=== PATIENT | female | born 1995 | race American Indian/Alaskan Native ===

== ENCOUNTER 2018-12-30 08:41 | Inpatient (IN) | payer MEDICAID ==
[2018-12-30 10:09] LABS: Basophils % (Auto) 0.3 % (0.0-1.8); Eosinophils % (Auto) 0.3 % (0.0-4.3); Hematocrit 32.2 % (30.3-42.9); Hemoglobin 10.2 gm/dl (10.1-14.3); Lymphocytes # (Auto) 1.3 K/mm3 (1.2-5.4); Lymphocytes % (Auto) 14.5 % (13.4-35.0); Mean Corpuscular HGB Conc 32 % (30-34); Mean Corpuscular Volume 76 fl (79-97); Monocytes # (Auto) 0.6 K/mm3 (0.0-0.8); Monocytes % (Auto) 7.2 % (0.0-7.3); Platelet Count 220 K/mm3 (140-440); Red Blood Count 4.26 M/mm3 (3.65-5.03); Red Cell Distribution Width 15.8 % (13.2-15.2)
[2018-12-30] MEDS ORDERED: STADOL IV PRN (12:03)
[2018-12-30] MEDS ORDERED: XYLOCAINE 2% INFILTRATI ONE (12:03)
[2018-12-30] MEDS ORDERED: MINERAL OIL PO PRN (12:03)
[2018-12-30] MEDS ORDERED: ZOFRAN IV PRN ×2 (12:03→18:49)
[2018-12-30] MEDS ORDERED: BRETHINE SUB-Q PRN (12:03)
[2018-12-30] MEDS ORDERED: PITOCin/NS 30 UNIT/500ML 30 UNITS/500 ML BAG IV SCH ×2 (13:00)
[2018-12-30] MEDS ORDERED: PITOCin/NS 20 UNIT/1000ML DRIP 20 UNITS/1,000 ML BAG IV SCH (13:00)
[2018-12-30] MEDS: LACTATED RINGERS 1,000 ML IV SCH ×2 (13:22→16:11)
[2018-12-30 14:14] LABS: Hemoglobin 9.1 gm/dl (10.1-14.3); Mean Corpuscular HGB Conc 32 % (30-34); Mean Corpuscular Volume 76 fl (79-97); Platelet Count 220 K/mm3 (140-440); Red Blood Count 3.82 M/mm3 (3.65-5.03); Red Cell Distribution Width 16.1 % (13.2-15.2)
--- NOTE | 2018-12-30 16:55 | History and Physical Report ---
History of Present Illness Date of admission: 12/30/18 10:51 Chief complaint: "my water broke" History of present illness: 24yo 39 39 3/7 weeks presents complaining of rupture membranes at 0630. She was nitrazine positive and grossly ruptured upon admission. She reports good movement and no vaginal bleeding. She has had care at [facility] beginning at 16 weeks gestation. Her has been complicated by morbid obesity (BMI 41 281lbs) and polyhydramnios 30cm (11/2018). She has been comanaged with [facility]. Past History - Obstetrical History : 3 Number of Living Children: 2 Medications and Allergies Allergies Allergy/AdvReac Type Severity Reaction Status Date / Time No Known Allergies Allergy Unverified 01/13/15 18:37 Home Medications Medication Instructions Recorded Confirmed Last Taken Type Tablet 1 tab PO DAILY 01/13/15 01/16/15 01/15/15 History Active Meds: Active Medications Butorphanol Tartrate (Stadol) 2 mg IV Q2H PRN PRN Reason: Pain , Severe (7-10) Ephedrine Sulfate (Ephedrine Sulfate) 10 mg IV Q2M PRN PRN Reason: Hypotension Lactated Ringer's (Lactated Ringers) 1,000 mls @ 125 mls/hr IV DIRECT MAGED Last Admin: 12/30/18 16:11 Dose: 125 mls/hr Documented by: Oxytocin/Sodium Chloride (Pitocin/Ns 20 Unit/1000ml Drip) 20 units in 1,000 mls @ 125 mls/hr IV DIRECT MAGED Oxytocin/Sodium Chloride (Pitocin/Ns 30 Unit/500ml) 30 units in 500 mls @ 1 mls/hr IV TITR MAGED; Protocol Oxytocin/Sodium Chloride (Pitocin/Ns 30 Unit/500ml) 30 units in 500 mls @ 2 mls/hr IV TITR MAGED; Protocol Mineral Oil (Mineral Oil) 30 ml PO QHS PRN PRN Reason: Constipation Ondansetron HCl (Zofran) 4 mg IV Q8H PRN PRN Reason: Nausea And Vomiting Terbutaline Sulfate (Brethine) 0.25 mg SUB-Q ONCE PRN PRN Reason: Hyperstimulation/Hypertonicity - Vital Signs Vital signs: Vital Signs Temp 98.1 F 12/30/18 08:41 Temp Pulse Resp BP Pulse Ox 98.1 F 12/30/18 08:41 - Obstetrical Cervical Dilatation: 3 Cervical Effacement Percentage: 50 station: -3 Uterine Contraction Pattern: Irregular Results Result Diagrams: 12/30/18 13:46 Abnormal lab results 12/30/18 12/30/18 Range/Units 08:45 13:46 Hgb 9.1 L (10.1-14.3) gm/dl Hct 29.0 L (30.3-42.9) % MCV 76 L 76 L (79-97) fl MCH 24 L 24 L (28-32) pg RDW 15.8 H 16.1 H (13.2-15.2) % Seg Neutrophils % 77.7 H (40.0-70.0) % All other labs normal. Assessment and Plan - Patient Problems (1) 39 weeks gestation of Current Visit: Yes Status: Acute Plan to address problem: IV fluids Pitocin augmentation Routine labs GBS negative Anticipate spontaneous vaginal delivery. (2) Spontaneous rupture of membranes Current Visit: Yes Status: Acute (3) Anemia affecting Current Visit: Yes Status: Acute
[2018-12-30] MEDS ORDERED: NARCAN 2 MG/2 ML IV PRN (17:43)
--- NOTE | 2018-12-30 17:44 | Anesthesia Consultation ---
Anesthesia Consult and Med Hx Date of service: 12/30/18 - Airway Anesthetic Teeth Evaluation: Good ROM Head & Neck: Adequate Mental/Hyoid Distance: Adequate Mallampati Class: Class II Intubation Access Assessment: Good - Pulmonary Exam CTA: Yes - Cardiac Exam Cardiac Exam: No Murmur - Pre-Operative Health Status ASA Pre-Surgery Classification: ASA2 Proposed Anesthetic Plan: Epidural - Pulmonary Hx Asthma: No COPD: No Hx Pneumonia: No - Cardiovascular System Hx Hypertension: No - Central Nervous System Hx Seizures: No Hx Psychiatric Problems: No - Endocrine Hx Renal Disease: No Hx End Stage Renal Disease: No Hx Hypothyroidism: No Hx Hyperthyroidism: No - Hematic Hx Anemia: No Hx Sickle Cell Disease: No - Other Systems Hx Alcohol Use: No Hx Obesity: Yes
[2018-12-30] MEDS ORDERED: fentaNYL-BUPIV 2 MCG/ML-0.125% 200 MCG/100 ML BAG EPIDURAL SCH (18:00)
[2018-12-30] MEDS ORDERED: LANSINOH TP PRN (18:49)
[2018-12-30] MEDS ORDERED: NORCO 5/325 PO PRN (18:49)
[2018-12-30] MEDS ORDERED: PHENERGAN PO PRN (18:49)
[2018-12-30] MEDS ORDERED: DULCOLAX PR PRN (18:49)
[2018-12-30] MEDS ORDERED: TUCKS PAD TP PRN (18:49)
[2018-12-30] MEDS ORDERED: MILK OF MAGNESIA PO PRN (18:49)
[2018-12-30] MEDS ORDERED: BENADRYL PO PRN (18:49)
--- NOTE | 2018-12-30 18:59 | Procedure Note ---
OB Delivery Note - Delivery Date of Delivery: 12/30/18 (1823) Surgeon: SANDEEP TAVAREZ (MICHAEL) Estimated blood loss: 200cc - Vaginal Delivery presentation: vertex Delivery position: OA Intrapartum events: none Delivery induction: none Delivery monitor: external FHT, external uterine Route of delivery: Delivery placenta: spontaneous Delivery cord: 3 umbilical vessels Episiotomy: none Delivery laceration: 1st degree Anesthesia: epidural Delivery comments: of viable male infant. Placed immediately to maternal abdomen. Cord double clamped after pulsation has ceased and cut by FOB. Placenta spontaneously delivered, slim, disposed per hospital policy. Cord blood collected per policy. Perineum with 1st degree laceration, with no repair, hemostasis maintained. Mother and baby stable and bonding well. - Infant A at 1 minute: 7 at 5 minutes: 9 Infant Gender: Male (Weight: 3703 gms 8lbs 3 oz; 19.5 inches)
[2018-12-30] MEDS ORDERED: SODIUM CHLORIDE FLUSH SYRINGE 10 ML IV NR (19:00)
[2018-12-30] MEDS: IBUPROFEN PO SCH (20:11)
[2018-12-31] MEDS: IBUPROFEN PO SCH ×5 (01:15→23:27)
[2018-12-31 08:25] LABS: Hematocrit 28.7 % (30.3-42.9); Hemoglobin 9.1 gm/dl (10.1-14.3)
--- NOTE | 2018-12-31 10:14 | Progress Note ---
Assessment and Plan A: PP Day #1 Asymptomatic Anemia P: Follow Routine Orders FeSO4 325mg ANA BID Plans Sterilization D/C Home in the AM RTO in 3 Weeks Subjective - Subjective Date of service: 12/31/18 Patient reports: appetite normal, voiding normally, pain well controlled, flatus, ambulating normally : doing well, bottle feeding Objective - Vital Signs Latest vital signs: Vital Signs Temp Pulse Resp BP BP Pulse Ox 12/30/18 23:55 98.7 F 97 H 20 116/63 98 12/30/18 21:25 99.1 F 83 20 113/59 98 12/30/18 20:11 20 12/30/18 20:10 85 125/66 100 12/30/18 20:07 89 123/64 12/30/18 20:05 86 100 12/30/18 20:04 86 122/64 12/30/18 20:01 86 128/64 12/30/18 20:00 78 99 12/30/18 19:58 87 123/62 12/30/18 19:55 83 121/64 100 12/30/18 19:52 87 122/65 12/30/18 19:50 80 100 12/30/18 19:49 82 121/63 12/30/18 19:46 80 122/66 12/30/18 19:45 76 100 12/30/18 19:43 89 128/72 12/30/18 19:40 89 123/60 100 12/30/18 19:37 78 131/75 12/30/18 19:35 82 100 12/30/18 19:34 80 126/73 12/30/18 19:31 85 123/64 12/30/18 19:30 78 100 12/30/18 19:28 82 119/60 12/30/18 19:25 81 125/64 100 12/30/18 19:22 85 127/62 12/30/18 19:19 84 124/59 100 12/30/18 19:17 95 H 135/63 12/30/18 19:14 91 H 99 12/30/18 19:13 82 123/67 12/30/18 19:10 77 120/67 12/30/18 19:09 78 100 12/30/18 19:07 85 109/62 12/30/18 19:05 88 126/68 12/30/18 19:04 65 100 12/30/18 19:01 93 H 135/73 12/30/18 18:58 96 H 104/65 100 12/30/18 18:55 76 120/65 12/30/18 18:53 78 100 12/30/18 18:52 75 121/68 12/30/18 18:49 79 122/69 12/30/18 18:48 86 100 12/30/18 18:46 75 117/64 12/30/18 18:43 75 123/65 100 12/30/18 18:40 70 123/64 12/30/18 18:37 74 119/65 100 12/30/18 18:34 67 118/62 12/30/18 18:31 76 120/59 99 12/30/18 18:28 74 142/62 12/30/18 18:26 82 100 12/30/18 18:25 77 138/64 12/30/18 18:22 87 151/81 82 L 12/30/18 18:21 89 100 12/30/18 18:16 84 139/75 100 12/30/18 18:13 75 134/75 12/30/18 18:11 79 100 12/30/18 18:10 76 135/75 12/30/18 18:07 88 132/62 100 12/30/18 18:04 90 134/77 12/30/18 18:01 88 131/74 100 12/30/18 17:58 97 H 122/72 12/30/18 17:56 95 H 100 12/30/18 17:55 82 130/66 12/30/18 17:52 81 136/77 99 12/30/18 17:49 85 133/71 12/30/18 17:46 84 128/62 100 12/30/18 17:43 80 136/66 12/30/18 17:41 82 100 12/30/18 17:40 75 135/63 12/30/18 17:37 76 140/66 12/30/18 17:35 88 100 12/30/18 17:34 80 152/72 12/30/18 17:31 81 151/68 12/30/18 17:29 69 100 12/30/18 17:25 88 120/67 100 12/30/18 17:22 70 128/69 12/30/18 17:20 89 100 12/30/18 17:19 83 130/73 12/30/18 17:15 94 H 100 12/30/18 17:10 104 H 100 12/30/18 17:05 92 H 100 12/30/18 17:04 53 L 88 Intake and Output 12/30/18 12/31/18 12/31/18 22:59 06:59 14:59 Intake Total 352.083 Output Total 400 Balance 352.083 -400 Intake: IV 352.083 Lactated Ringers 1,000 ml 352.083 @ 125 mls/hr IV DIRECT MAGED Rx#:[id number] Output: Urine 400 Void 400 Other: Total, Output Amount 400 # Voids Void 1 Estimated Blood Loss 200 - Exam Breasts: Present: normal Cardiovascular: Present: Regular rate Lungs: Present: Clear to auscultation, Normal air movement Abdomen: Present: normal appearance, soft, normal bowel sounds Uterus: Present: normal, firm, fundal height below umbilicus Extremities: Present: normal - Labs Labs: Abnormal lab results 12/30/18 12/30/18 12/31/18 Range/Units 08:45 13:46 07:44 Hgb 9.1 L 9.1 L (10.1-14.3) gm/dl Hct 29.0 L 28.7 L (30.3-42.9) % MCV 76 L 76 L (79-97) fl MCH 24 L 24 L (28-32) pg RDW 15.8 H 16.1 H (13.2-15.2) %
--- NOTE | 2018-12-31 10:16 | Discharge Summary ---
Providers - Providers Date of Admission: 12/30/18 10:51 Date of discharge: 01/01/19 Attending physician: MABLE HURT Primary care physician: MABLE HURT Hospitalization Reason for admission: rupture of membranes Delivery: Episiotomy: none Laceration: 1st degree Other procedures: none complications: none Discharge diagnosis: IUP at term delivered baby: male Condition at discharge: Good Disposition: DC-01 TO HOME OR SELFCARE Plan - Provider Discharge Summary Activity: routine, no sex for 6 weeks, no heavy lifting 4 weeks, no strenuous exercise Diet: routine Instructions: routine Additional instructions: [] Smoking cessation referral if applicable(refer to patient education folder for contact #) [] Refer to [facility] Booklet Call your doctor immediately for: * Fever > 100.5 * Heavy vaginal bleeding ( >1 pad per hour) * Severe persistent headache * Shortness of breath * Reddened, hot, painful area to leg or breast * Drainage or odor from incision. * Keep incision clean and dry at all times and follow doctor's instructions regarding bathing/showering - Follow up plan Follow up: MABLE HURT MD [Primary Care Provider] - 01/21/19
--- NOTE | 2018-12-31 10:58 | Post Anesthesia Evaluation ---
- Post Anesthesia Evaluation Patient Participated: Yes Airway Patent: Yes Stable Respiratory Function: Yes Nausea/Vomiting: No Temp > 96.8F: Yes Pain Manageable: Yes Adequeate Hydration: Yes Anesthesia Complications: No Block Receding Appropriately: Yes Patient on Ventilator: No
[2018-12-31] MEDS: FEOSOL PO SCH ×2 (11:07→22:11)
[2019-01-01] MEDS: IBUPROFEN PO SCH (06:07)
[2019-01-01] MEDS: FEOSOL PO SCH (09:18)
[2019-01-01 13:28] VITALS: BP 122/74
== END 2019-01-01 12:24 | disposition home or self-care (01) | DRG 775 ==
LOC: TRG 08:41 → LD 10:51 → OB 20:50
PROVIDERS: ADMIT Obstetrics & Gynecology; ATTEND Obstetrics & Gynecology
PROC: 10E0XZZ Delivery of Products of Conception, External Approach (ICD-10-PCS; principal; 2018-12-30)
PROC: 3E0R3BZ Introduction of Anesthetic Agent into Spinal Canal, Percutaneous Approach (ICD-10-PCS; 2018-12-30)
PROC: 00HU33Z Insertion of Infusion Device into Spinal Canal, Percutaneous Approach (ICD-10-PCS; 2018-12-30)
DX: O99.214 Obesity complicating childbirth (principal); E66.9 Obesity, unspecified; O70.0 First degree perineal laceration during delivery; O90.81 Anemia of the puerperium; D64.9 Anemia, unspecified; Z3A.39 39 weeks gestation of pregnancy; Z37.0 Single live birth
CPT/HCPCS: 36415; 85014; 85018; 85025; 85027; 86592; 86850; 86900; 86901; G0378; J0595; J2590; J7120